=== PATIENT | male | born 1960 | race Caucasian/White ===

== ENCOUNTER 2017-04-08 18:23 | Emergency (ER) ==
[2017-04-08 18:24] VITALS: BMI 20.9
[2017-04-08 18:29] VITALS: TEMP 96.7
--- NOTE | 2017-04-08 18:35 | ED.PDOC ---
General Stated Complaint: syncope Time Seen by Physician: 18:24 (was found on the ground unresponsive) Mode of Arrival: Ambulance Information Source: Patient Exam Limitations: No limitations Referred to ED by: Other (ON OXYCDONE AND VALIUM AST OUT TAKE 1 TAB Q6HRS , HISTORY OF THROAT CANCER ) Nursing and Triage Documentation Reviewed and Agree: Yes <CAMILO BUSTOS - Last Filed: 04/08/17 18:32> <MARIA ELENA CARCAMO - Last Filed: 04/08/17 20:32> ED Provider: Dr. 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 Denies: Decreased responsiveness, Agitation, Dizziness, Weakness, Short of air, Cough, Wheezing, Hemoptysis, Chest pain, Palpitations, Edema, Nausea, Vomiting, Diarrhea, Abdominal pain, Back pain, Dysuria, Hematemesis, Melena, Decreased oral intake, Fever, Diaphoresis, Immunocompromised, Anticoagulation Therapy, Recent medication changes, Indwelling medical scientist, Prior MRSA, Prior VRE, Recent trauma, Remote trauma Recent Echo/LV Function: No Respiratory Distress: None JVD Present: No Tachypnea Present: No Stridor Present: No (ARRIVED FULLY ORIENTATED NO RESIDUAL DEFICIT) Abdominal Findings: Present: Normal findings Glascow Coma Scale (see protocol): 15 Meningeal Signs Positive: No Focal Weakness: Present: None Focal Sensory Loss: Present: None Gait: Normal Gag Reflex Present: No Babinski Sign: Negative Right, Negative Left Skin Findings: Present: Normal findings Joint Swelling Present: No In-Dwelling Device Present: No Differential Diagnosis: Cardiac Ischemia, CVA, Metabolic Abnormality, Other ( OVERDOSE WITH PAIN MEDS ) Quality Indicator For Non-Traumatic Chest Pain/Syncope: EKG Performed <CAMILO BUSTOS Last Filed: 04/08/17 18:32> Review of Systems - Review Of Systems Constitutional: Reports: No symptoms Eyes: Reports: No symptoms Ears, Nose, Mouth, Throat: Reports: No symptoms Respiratory: Reports: No symptoms Cardiac: Reports: Syncope GI: Reports: No symptoms : Reports: No symptoms Musculoskeletal: Reports: No symptoms Skin: Reports: No symptoms Neurological: Reports: No symptoms Endocrine: Reports: No symptoms Hematologic/Lymphatic: Reports: No symptoms All Other Systems: Reviewed and Negative <CAMILO BUSTOS Last Filed: 04/08/17 18:32> Past Medical History - Past Medical History Previously Healthy: Yes Endocrine: Reports: None Cardiovascular: Reports: None Respiratory: Reports: None Hematological: Reports: None Gastrointestinal: Reports: None Genitourinary: Reports: None Neuro/Psych: Reports: None Musculoskeletal: Reports: None Cancer: Reports: Other (THROAT CANCER ) - Surgical History General Surgical History: Reports: None - Family History Family History: Reports: None - Social History Smoking Status: Current some day smoker Hx Substance Use: No Alcohol Screening: Occasionally - Immunizations Tetanus Shot up to Date: Yes <CAMILO BUSTOS Filed: 04/08/17 18:32> Physical Exam - Physical Exam Appearance: Well-appearing, No pain distress, Well-nourished Eyes: LILIANA, EOMI, Conjunctiva clear ENT: Ears normal, Nose normal, Oropharynx normal Respiratory: Airway patent, Breath sounds clear, Breath sounds equal, Respirations nonlabored Cardiovascular: RRR, Pulses normal, No rub, No murmur GI/: Soft, Nontender, No masses, Bowel sounds normal, No Organomegaly Musculoskeletal: Normal strength, ROM intact, No edema, No calf tenderness Skin: Warm, Dry, Normal color Neurological: Sensation intact, Motor intact, Reflexes intact, Cranial nerves intact, Alert, Oriented Psychiatric: Affect appropriate, Mood appropriate <LUILILOCAMILO Last Filed: 04/08/17 18:32> Interpretation - Radiology Interpretation Radiology Interpretation By: Radiologist <CAMILO BUSTOS Last Filed: 04/08/17 18:32> Physician Notification - Case Discussed Physician Notified: ROTICH Time of Notification: 19:00 (LABS PENDING) <LUILILOCAMILO Last Filed: 04/08/17 18:32> Critical Care Note - Critical Care Note Total Time (mins): 0 <CAMILO BUSTOS - Last Filed: 04/08/17 18:32> <MARIA ELENA CARCAMO - Last Filed: 04/08/17 20:32> - Critical Care Note Comments: explained to the patient that he is at risk of dying if not keep in the hospital for observation due to narcotic overdose. patient insist on going home. he will sign out AMA. (MARIA ELENA CARCAMO) Course - Course Hematology/Chemistry: 04/08/17 18:56 04/08/17 18:56 <MARIA ELENA CARCAMO - Last Filed: 04/08/17 20:32> - Course Orders, Labs, Meds: Lab Review 04/08/17 04/08/17 04/08/17 18:56 18:56 19:08 WBC 10.70 H RBC 4.42 L Hgb 13.7 L Hct 40.5 L MCV 91.6 MCH 31.0 MCHC 33.8 RDW Coeff of [place] 14.1 Plt Count 276 Immature Gran % (Auto) 0.6 Neut % (Auto) 77.5 Lymph % (Auto) 13.2 Nicholas % (Auto) 7.5 Eos % (Auto) 0.7 Baso % (Auto) 0.5 Immature Gran # (Auto) 0.1 Neut # 8.3 H Lymph # 1.4 Nicholas # 0.8 Eos # 0.1 Baso # 0.1 Sodium 139 Potassium 4.7 Chloride 107 Carbon Dioxide 23 Anion Gap 13.7 BUN 20 H Creatinine 1.09 Estimated GFR (MDRD) 70.00 BUN/Creatinine Ratio 18.34 Glucose 135 H Calcium 9.0 Total Bilirubin 0.31 AST 76 H ALT 92 H Alkaline Phosphatase 58 Total Creatine Kinase 177 CK-MB (CK-2) 1.4 CK-MB (CK-2) % 0.58691 Troponin I < 0.0100 Total Protein 7.2 Albumin 3.7 Globulin 3.5 Albumin/Globulin Ratio 1.06 Urine Color Urine Clarity Urine pH Ur Specific [place] Urine Protein Urine Glucose (UA) Urine Ketones Urine Blood Urine Nitrite Urine Bilirubin Urine Urobilinogen Ur Leukocyte Esterase Ur Squamous Epith Cells Urine Sperm Urine Opiates Screen Positive Ur Oxycodone Screen Negative Urine Methadone Screen Negative Ur Propoxyphene Screen Negative Ur Barbiturates Screen Negative U Tricyclic Antidepress Negative Ur Phencyclidine Scrn Negative Ur Amphetamine Screen Positive U Methamphetamines Scrn Positive U Benzodiazepines Scrn Positive Urine Cocaine Screen Negative U Cannabinoids Screen Positive 04/08/17 19:08 WBC RBC Hgb Hct MCV MCH MCHC RDW Coeff of [place] Plt Count Immature Gran % (Auto) Neut % (Auto) Lymph % (Auto) Nicholas % (Auto) Eos % (Auto) Baso % (Auto) Immature Gran # (Auto) Neut # Lymph # Nicholas # Eos # Baso # Sodium Potassium Chloride Carbon Dioxide Anion Gap BUN Creatinine Estimated GFR (MDRD) BUN/Creatinine Ratio Glucose Calcium Total Bilirubin AST ALT Alkaline Phosphatase Total Creatine Kinase CK-MB (CK-2) CK-MB (CK-2) % Troponin I Total Protein Albumin Globulin Albumin/Globulin Ratio Urine Color Yellow Urine Clarity Clear Urine pH 5.5 Ur Specific [place] 1.020 Urine Protein 1+ Urine Glucose (UA) Negative Urine Ketones Negative Urine Blood Negative Urine Nitrite Negative Urine Bilirubin Negative Urine Urobilinogen 0.2 Ur Leukocyte Esterase Negative Ur Squamous Epith Cells 2-5 Urine Sperm 1+ Urine Opiates Screen Ur Oxycodone Screen Urine Methadone Screen Ur Propoxyphene Screen Ur Barbiturates Screen U Tricyclic Antidepress Ur Phencyclidine Scrn Ur Amphetamine Screen U Methamphetamines Scrn U Benzodiazepines Scrn Urine Cocaine Screen U Cannabinoids Screen Orders Category Date Time Status EKG-(ED ONLY) Stat CARDIO 04/08/17 18:30 Completed CBC W/ AUTO DIFF Stat LAB 04/08/17 18:56 Completed COMPREHENSIVE METABOLIC PANEL Stat LAB 04/08/17 18:56 Completed CREATINE KINASE Stat LAB 04/08/17 18:56 Completed TROPONIN I Stat LAB 04/08/17 18:56 Completed URINALYSIS C & S IF INDICATED Stat LAB 04/08/17 19:08 Completed URINE DRUG SCREEN (RAPID FOR ED) [DRUG SCREEN, URINE, LAB 04/08/17 19:08 Completed RAPID] Stat CT CERVICAL SPINE W/O CONTRAST Stat RADS 04/08/17 18:[address] HEAD W/O CONTRAST Stat RADS 04/08/17 18:31 Completed Vital Signs: Temp Pulse Resp BP Pulse Ox 04/08/17 19:40 97 04/08/17 19:24 126 H 15 152/106 H 04/08/17 18:24 96.7 F L 125 H 17 139/103 H 98 Departure <RAFATI,CAMILO - Last Filed: 04/08/17 18:32> - Departure Time of Disposition: 20:30 Pt referred to PMD for follow-up: Yes Disposition Discussed With: Patient, Family <MARIA ELENA CARCAMO - Last Filed: 04/08/17 20:32> - Departure Disposition: AMA Discharge Problem: Syncope and collapse Instructions: Syncope (ED) Condition: Stable Additional Instructions: Please call your Family Physician as soon as possible to schedule a follow-up appointment. Allergies/Adverse Reactions: Allergies gabapentin [From Neurontin] Adverse Reaction (Verified 04/08/17 18:40) tramadol HCl [From Ultram] Adverse Reaction (Verified 04/08/17 18:40) Home Medications: Ambulatory Orders Diazepam [Valium] 5 mg PO Q4-6H PRN 12/08/14 Oxycodone HCl 1 tab PO Q6HR 12/08/14
[2017-04-08 18:58] LABS: BASOPHILS # (AUTO) 0.1 K/uL (0-0.2); BASOPHILS % (AUTO) 0.5 % (0.0-3.0); EOSINOPHILS # (AUTO) 0.1 K/ul (0.0-0.7); EOSINOPHILS % (AUTO) 0.7 % (0.0-7.0); HEMATOCRIT 40.5 % (42.0-52.0); HEMOGLOBIN 13.7 g/dl (14.0-18.0); IMMATURE GRANULOCYTE % (AUTO) 0.6 % (0.0-5.0); LYMPHOCYTES # (AUTO) 1.4 K/uL (0.60-3.4); LYMPHOCYTES % (AUTO) 13.2 (10.0-50.0); MEAN CORPUSCULAR HGB CONC 33.8 (31.8-35.4); MEAN CORPUSCULAR VOLUME 91.6 fl (80.0-94.0); MONOCYTES # (AUTO) 0.8 K/uL (0.4-2.0); MONOCYTES % (AUTO) 7.5 (0-10); NEUTROPHILS # (AUTO) 8.3 K/ul (2.0-6.9); NEUTROPHILS % (AUTO) 77.5; PLATELET COUNT 276 10^3/uL (140-440); RED BLOOD COUNT 4.42 10^6/ul (4.70-6.10)
--- NOTE | 2017-04-08 19:11 | CT ---
Exam: CT of the brain without intravenous contrast. Comparison: CT soft tissue neck performed 12/08/2014. Reason for exam: Found on ground FINDINGS: No acute intracranial hemorrhage, mass effect, ventricular dilatation, or territorial infarction. Th e quadrigeminal and ambient cisterns are patent. There is no extraaxial fluid collection. Parenchym al changes are seen consistent with chronic microvascular disease. The calvarium is intact. There is minimal mucosal thickening in the left maxillary sinus. Otherwise the paranasal sinuses and mastoid air cells appear grossly unopacified. Impression: 1. No acute intracranial findings. 2. Parenchymal changes consistent with chronic microvascular disease. 3. Minimal mucosal thickening in the left maxillary sinus. Report faxed at 1907 hours on 04/08/2017.
--- NOTE | 2017-04-08 19:12 | CT ---
CT cervical spine without contrast HISTORY: Fall with injury and pain TECHNIQUE: CT of the cervical spine with multiplanar reformations. FINDINGS: Reformatted images demonstrate normal alignment with preservation of vertebral body height . Prior fusion of 02/1967. The hardware is intact. No fracture seen on the axial or reformatted shannan ges. No acute surrounding soft tissue abnormalitites. Lung apices are clear with emphysematous change . IMPRESSION: No acute findings in the cervical spine.
[2017-04-08 19:15] LABS: BILIRUBIN,URINE Negative (NEGATIVE); KETONES,URINE Negative (NEGATIVE); LEUKOCYTE ESTERASE ,URINE Negative (NEGATIVE); NITRITE,URINE Negative (NEGATIVE); PH,URINE 5.5 (5-9); PROTEIN,URINE 1+ (NEGATIVE); URINE, BLOOD Negative (NEGATIVE)
[2017-04-08 19:22] LABS: ADD URINE MICROSCOPIC YES
[2017-04-08 19:25] VITALS: BP 152/106
[2017-04-08 19:25] LABS: SPERM,URINE 1+ (NOT PRESENT)
[2017-04-08 19:33] LABS: ALANINE AMINOTRANSFERASE 92 U/L (12-78); ALBUMIN 3.7 g/dL (3.4-5.0); ALBUMIN/GLOBULIN RATIO 1.06; ALKALINE PHOSPHATASE 58 U/L (50-136); ANION GAP 13.7; ASPARTATE AMINO TRANSFERASE 76 U/L (15-37); BILIRUBIN,TOTAL 0.31 mg/dL (0.00-1.20); BLOOD UREA NITROGEN 20 mg/dL (7-18); BUN/CREATININE RATIO 18.34; CARBON DIOXIDE 23 mmol/L (21-32); CHLORIDE 107 mmol/L (98-107); CREATINE KINASE 177 U/L; CREATININE 1.09 mg/dL (0.60-1.10); GLUCOSE 135 mg/dL (70-100); POTASSIUM 4.7 mmol/L (3.5-5.1); SODIUM 139 mmol/L (136-145); TOTAL PROTEIN 7.2 g/dL (6.4-8.2)
[2017-04-08 19:40] LABS: COCAIN SCREEN,URINE NEGATIVE (NEGATIVE)
[2017-04-08 19:45] LABS: CREATINE KINASE MB 1.4 ng/ml (0.0-3.6)
== END 2017-04-08 20:25 | disposition left against medical advice (07) ==
LOC: ED 18:23
DX: R55 Syncope and collapse (principal); R41.0 Disorientation, unspecified; R51 Headache; T40.601A Poisoning by unspecified narcotics, accidental (unintentional), initial encounter; R23.0 Cyanosis; R11.0 Nausea; R00.0 Tachycardia, unspecified; R06.9 Unspecified abnormalities of breathing; R61 Generalized hyperhidrosis; F17.210 Nicotine dependence, cigarettes, uncomplicated; Z85.818 Personal history of malignant neoplasm of other sites of lip, oral cavity, and pharynx
CPT/HCPCS: 36415; 80053; 80306; 81001; 82550; 82553; 84484; 85025; 93005; 93010; 96360; 96361; 99284

== ENCOUNTER 2017-12-23 09:14 | Emergency (ER) | payer OTHER ==
[2017-12-23 09:18] VITALS: BP 161/119; TEMP 96.9; BMI 20.7
--- NOTE | 2017-12-23 10:35 | ED.PDOC ---
General ED Provider: Dr. INOCENCIA RIVERA Chief Complaint: Neck Pain Non-Injury Stated Complaint: CC: Neck Pain. HPI:PATIENT REPORTS THAT HE FELL 2 WEEKS AGO ON 12/13/17 AND STRUCK HIS HEAD AGAINST A CONCRETE WALL RESULTING IN CAUSING HIS NECK TO MOVE FORCEFULLY AGAINST HIS CHEST. PATIENT REPORTS THAT HE FEELS LIKE THE PAIN IS NOW "MESSING WITH HIS EYE SIGHT". HX OF CHRONIC NECK PAIN AND SEES PAIN MANAGEMENT FOR TREATMENT. DENIES LOC, NAUSEA OR VOMITING. HX OF THROAT CA PREVIOUSLY TREATED. Time Seen by Physician: 09:30 Mode of Arrival: Walk-In Information Source: Patient Primary Care Provider: RAFFI SCHOFIELD Nursing and Triage Documentation Reviewed and Agree: Yes Reviewed sepsis parameters & appropriate labs ordered?: Yes System Inflammatory Response Syndrome: Not Applicable Sepsis Protocol: For patient's 13 years and over: Temp is 96.8 and below OR 101 and greater Pulse >90 BPM Resp >20/minute Acutely Altered Mental Status Are patient's symptoms suggestive of a new infection, such as: -Pneumonia -Skin, Soft Tissue -Endocarditis -UTI -Bone, Joint Infection -Implantable Device -Acute Abdominal Infection -Wound Infection -Meningitis -Blood Stream Catheter Infection -Unknown Musculoskeletal Complaint Exam - Neck Pain Complaint/Exam Mechanism of Injury: Reports: Trauma (Hitting back of head causing jarring of neck) Symptoms Are: Still present Timing: Intermittent Episodes Lasting: Minutes Initial Severity: Moderate Current Severity: Mild Location: Reports: Diffuse Character: Reports: Sharp, Dull, Aching Aggravating: Reports: Position, Movement Alleviating: Reports: Position, OTC meds, Ice Associated Signs and Symptoms: Reports: Headache. Denies: Swelling, Redness, Bruising, Fever, Nuchal rigidity, Weakness, Paresthesia Related History: Reports: Similar episode Meningitis Risk Factors: Reports: None Cervical Spine Injury Risk Factors: Denies: Post-Midline CS tender, Evidence of intoxication, Altered LOC, Focal neuro deficit, Distracting injuries Related Surgical History: Reports: Cervical Fusion Carotid Bruit Present: No Pain on Passive Flexion: No Positive Kernig's Sign: No ROM Limited In: Present: Flexion Tenderness: Present: Midline, Paraspinal Radiates to: Absent: Right arm, Left arm Focal Weakness: Present: None Focal Sensory Loss: Reports: None Nexus Low Risk Criteria: No post-midline CS tender, No evidence of intoxicat., No Altered LOC, No focal neuro deficit, No distracting injuries Differential Diagnoses: Strain, Other Review of Systems - Review Of Systems Constitutional: Reports: No symptoms Eyes: Reports: No symptoms Ears, Nose, Mouth, Throat: Reports: No symptoms, Throat pain (vocal deficit due to hx Ca) Respiratory: Reports: No symptoms Cardiac: Reports: No symptoms GI: Reports: No symptoms : Reports: No symptoms Musculoskeletal: Reports: No symptoms Skin: Reports: No symptoms Neurological: Reports: No symptoms Endocrine: Reports: No symptoms Hematologic/Lymphatic: Reports: No symptoms All Other Systems: Reviewed and Negative Past Medical History - Past Medical History Previously Healthy: Yes Endocrine: Reports: None Cardiovascular: Reports: None Respiratory: Reports: None Hematological: Reports: None Gastrointestinal: Reports: None Genitourinary: Reports: None Neuro/Psych: Reports: None Musculoskeletal: Reports: None Cancer: Reports: Other (THROAT CANCER ) - Surgical History General Surgical History: Reports: None, Unknown (Cervical spine) - Family History Family History: Reports: None - Social History Smoking Status: Current some day smoker Hx Substance Use: No Alcohol Screening: Occasionally Physical Exam - Physical Exam Appearance: Well-appearing, No pain distress, Well-nourished, Thin Ill-appearing: None Pain Distress: None Eyes: LILIANA, EOMI, Conjunctiva clear ENT: Ears normal, Nose normal, Oropharynx normal Respiratory: Airway patent, Breath sounds clear, Breath sounds equal, Respirations nonlabored Cardiovascular: RRR, Pulses normal, No rub, No murmur GI/: Soft, Nontender, No masses, Bowel sounds normal, No Organomegaly Musculoskeletal: Normal strength, ROM intact, No edema, No calf tenderness, Limited ROM (Cervical spine restricted due to pain and hx prev surgery; no meningeal signs) Skin: Warm, Dry, Normal color Neurological: Sensation intact, Motor intact, Reflexes intact, Cranial nerves intact, Alert, Oriented Psychiatric: Affect appropriate, Mood appropriate Interpretation - Radiology Interpretation Radiology Interpretation By: Radiologist Radiology Results: No acute changes (Brain and C spine) Exam Interpreted: CT Scan Re-Evaluation - Re-Evaluation Time of Re-Evaluation: 12:15 Status: Improved Vital Signs Stable: Yes Appearance: NAD Lungs: Clear Skin: Warm and Dry Neuro: Alert and Oriented X3 CV: RRR Critical Care Note - Critical Care Note Total Time (mins): 0 Course - Course Orders, Labs, Meds: Orders Category Date Time Status CT CERVICAL SPINE W/O CONTRAST Stat RADS 12/23/17 10:[address] HEAD W/O CONTRAST Stat RADS 12/23/17 10:37 Completed Vital Signs: Temp Pulse Resp BP Pulse Ox 12/23/17 09:15 96.9 F L 74 16 161/119 H 98 Departure - Departure Time of Disposition: 12:30 Disposition: HOME SELF-CARE Discharge Problem: Neck pain, Head pain cephalgia Instructions: Cervical Strain (DC), Acute Headache (ED) Condition: Good Pt referred to PMD for follow-up: Yes (PCP) IPMP verified?: No Additional Instructions: Apply ice alternating with warm moist heat to area of involvement Take analgesics as prescribed previously Follow up PCP in next week Allergies/Adverse Reactions: Allergies gabapentin [From Neurontin] Adverse Reaction (Verified 12/23/17 09:18) tramadol HCl [From Ultram] Adverse Reaction (Verified 12/23/17 09:18) Home Medications: Ambulatory Orders Lisinopril [Zestril] 10 mg PO DAILY 12/23/17 Disposition Discussed With: Patient, Family
--- NOTE | 2017-12-23 11:52 | CT ---
EXAM: CT scan brain without contrast HISTORY: Fall COMPARISON: CT scan brain 04/08/2017 FINDINGS: Contiguous axial images obtained from the skull base to the convexities without contrast u tilizing 5-mm collimation. Sagittal and coronal reconstructions were imaged and reviewed.. The ventr icles and CSF spaces are prominent compatible with age appropriate. There is mild periventricular hy podensity noted compatible with chronic microvascular disease.. Visualized paranasal sinuses and mas toid air cells are clear. Atherosclerotic changes are seen involving cavernous internal carotid chris peyton. The calvarium is intact. IMPRESSION: No acute intracranial findings
--- NOTE | 2017-12-23 12:00 | CT ---
EXAM: CT cervical spine without contrast HISTORY: Pain in head and neck COMPARISON: 02/05/2017 TECHNIQUE: CT cervical spine performed without intravenous contrast. Coronal and sagittal reformatt ed images obtained. FINDINGS: Patient status post anterior spinal fusion C6-C7 with interbody spacer/graft. Hardware ap pears intact. Vertebral bodies normal height. No fracture. No subluxation. Multilevel interverteb ral disc space narrowing, greatest at C3-C4. Multilevel facet and uncovertebral hypertrophy. Degene rative changes cause mild to moderate central canal and neural foraminal narrowing that is greatest a t C3-C4. Prevertebral soft tissues appear normal. Carotid atherosclerotic vascular calcifications. E mphysema lung apices. IMPRESSION: 1. No fracture or subluxation. 2. Posterior spinal fusion C6-C7. Hardware appears intact. Chronic degenerative changes. 3. Emphysema. 4. Carotid calcifications.
== END 2017-12-23 12:40 | disposition home or self-care (01) ==
LOC: ED 09:14
DX: M54.2 Cervicalgia (principal); R51 Headache; F17.210 Nicotine dependence, cigarettes, uncomplicated; W19.XXXA Unspecified fall, initial encounter
CPT/HCPCS: 99283

== ENCOUNTER 2024-04-04 19:49 | Observation (INO) ==
[2024-04-04] MEDS: LACTATED RINGERS 1,000 ML IV ONE (20:08)
[2024-04-04 20:18] LABS: BASOPHILS # (AUTO) 0.1 K/uL (0-0.2); BASOPHILS % (AUTO) 0.6 % (0.0-3.0); EOSINOPHILS # (AUTO) 0.3 K/ul (0.0-0.7); EOSINOPHILS % (AUTO) 2.3 % (0.0-7.0); HEMATOCRIT 52.1 % (42.0-52.0); HEMOGLOBIN 17.5 g/dl (14.0-18.0); IMMATURE GRANULOCYTE # (AUTO) 0.1 (0.0-1.0); IMMATURE GRANULOCYTE % (AUTO) 0.7 % (0.0-5.0); LYMPHOCYTES # (AUTO) 2.7 K/uL (0.60-3.4); LYMPHOCYTES % (AUTO) 25.4 (10.0-50.0); MEAN CORPUSCULAR HEMOGLOBIN 31.4 pg (27.0-31.0); MEAN CORPUSCULAR HGB CONC 33.6 (31.8-35.4); MEAN CORPUSCULAR VOLUME 93.5 fl (80.0-94.0); MONOCYTES # (AUTO) 1.2 K/uL (0.4-2.0); MONOCYTES % (AUTO) 11.1 (0-10); NEUTROPHILS # (AUTO) 6.4 K/ul (2.0-6.9); NEUTROPHILS % (AUTO) 59.9 % (42.2-75.2); PLATELET COUNT 282 10^3/uL (140-440); RDW COEFFICIENT OF VARIATION 14.3 % (11.6-14.8); RED BLOOD COUNT 5.57 10^6/ul (4.70-6.10); WHITE BLOOD COUNT 10.64 K/ul (4.2-10.2)
--- NOTE | 2024-04-04 20:19 | ED.PDOC ---
General ED Provider: Dr. KRISTIAN ARMENDARIZ MD Chief Complaint: Shortness of Air Stated Complaint: 63 yo WM complains of don't feel good and hurting all over for 4-5 days. Some cough but can't catch his breath. Also some vague chest pain and bad headaches for 4-5 days. Difficulty getting up and around today but drove himself in. Hx of HTN, back surgery. Smokes 1 PPD, weekend alcohol drinker about 12 pack daily. Use daily THC and occasional meth. On arrival RN reported his BP 58/44. Time Seen by Provider: 04/04/24 19:55 Mode of Arrival: Walk-In Information Source: Patient Exam Limitations: Clinical condition Primary Care Provider: EDIN BOSTON Referred to ED by: Other (self) Nursing and Triage Documentation Reviewed and Agree: Yes What is Opioid Naive?: *Opioid Naive implies the patient is not already taking opioids or not chronically receiving opioids on a daily basis. *PRN dosing is not "usually" associated with tolerance. *Patients are at higher risk of over-sedation and aspiration. What is Opioid Tolerant?: *Opioid Tolerance implies less than the expected response to an opioid. *Acquired tolerance is defined by the patient taking 60mg of oral morphine daily (or equianalgesic dose of another opioid) for 1 week or more. *Often associated with chronic pain. *May take more than usual dose to achieve desired pain control. Review of Systems Review Of Systems Constitutional: Reports Malaise and Weakness Eyes: Reports No symptoms Ears, Nose, Mouth, Throat: Denies Nose discharge or Throat pain Respiratory: Reports Cough and Shortness of Breath Cardiac: Reports Chest pain GI: Reports Diarrhea (Diarrhea for 2 days); Denies Vomiting Musculoskeletal: Reports Back pain Skin: Reports No symptoms Neurological: Reports Headache Endocrine: Denies Excessive sweating [facility] Social History Smoking and tobacco status: Current every day smoker Physical Exam Physical Exam Appearance: Reports Well-nourished Ill-appearing: Mild Pain Distress: Mild Eyes: Reports LILIANA and EOMI ENT: Reports Nose normal and Oropharynx normal Neck: Supple Respiratory: Reports Breath sounds equal, Respirations nonlabored and Rhonchi; Denies Wheezes or Retractions Cardiovascular: Reports RRR, Pulses normal, No rub and No murmur GI/: Reports Nontender, No masses, Bowel sounds normal and No Organomegaly Musculoskeletal: Reports Normal strength, ROM intact and No edema Skin: Reports Warm, Dry and Normal color Neurological: Reports Sensation intact, Motor intact and Reflexes intact Psychiatric: Reports Affect appropriate and Mood appropriate Interpretation EKG Interpretation EKG Interpretation By: ED Physician Time of EKG #1: 20:15 Rate: Normal Rhythm: Sinus Ectopy: None [place]: [place] ST Segment: Normal Interpretation: NSR, normal axis, abnormal R wave progression, borderline EKG Course Course 04/04/24 20:05 04/04/24 20:05 Orders, Labs, Meds: Lab Review 04/04/24 04/04/24 04/04/24 20:05 20:06 21:06 WBC 10.64 H RBC 5.57 Hgb 17.5 Hct 52.1 H MCV 93.5 MCH 31.4 H MCHC 33.6 RDW Coeff of [place] 14.3 Plt Count 282 Immature Gran % (Auto) 0.7 Neut % (Auto) 59.9 Lymph % (Auto) 25.4 Bartholomew % (Auto) 11.1 H Eos % (Auto) 2.3 Baso % (Auto) 0.6 Neut # (Auto) 6.4 Lymph # (Auto) 2.7 Bartholomew # (Auto) 1.2 Eos # (Auto) 0.3 Baso # (Auto) 0.1 Immature Gran # (Auto) 0.1 Sodium 135.1 Potassium 3.82 Chloride 99.8 Carbon Dioxide 21.4 L Anion Gap 17.72 BUN 19.8 Creatinine 1.81 H Estimated GFR (MDRD) 38.00 BUN/Creatinine Ratio 10.93 Glucose 106.8 H Lactic Acid 2.82 H Calcium 9.65 Magnesium 2.23 Total Bilirubin 0.44 AST 37.1 ALT 18.0 Alkaline Phosphatase 80.4 Total Creatine Kinase CK-MB (CK-2) CK-MB (CK-2) % Troponin I < 0.012 NT-Pro-B Natriuret Pep 702 H Total Protein 7.90 Albumin 4.83 Globulin 3.07 Albumin/Globulin Ratio 1.57 Procalcitonin < 0.05 D-Dimer 970.92 H Urine Opiates Screen Negative Ur Oxycodone Screen Negative Urine Methadone Screen Negative Ur Barbiturates Screen Negative U Tricyclic Antidepress Negative Ur Phencyclidine Scrn Negative Ur Amphetamine Screen Positive H U Methamphetamines Scrn Positive H U Benzodiazepines Scrn Positive H Urine Cocaine Screen Negative U Cannabinoids Screen Positive H 04/04/24 22:45 WBC RBC Hgb Hct MCV MCH MCHC RDW Coeff of [place] Plt Count Immature Gran % (Auto) Neut % (Auto) Lymph % (Auto) Bartholomew % (Auto) Eos % (Auto) Baso % (Auto) Neut # (Auto) Lymph # (Auto) Bartholomew # (Auto) Eos # (Auto) Baso # (Auto) Immature Gran # (Auto) Sodium Potassium Chloride Carbon Dioxide Anion Gap BUN Creatinine Estimated GFR (MDRD) BUN/Creatinine Ratio Glucose Lactic Acid Calcium Magnesium Total Bilirubin AST ALT Alkaline Phosphatase Total Creatine Kinase 172.8 H CK-MB (CK-2) Pending CK-MB (CK-2) % Pending Troponin I NT-Pro-B Natriuret Pep Total Protein Albumin Globulin Albumin/Globulin Ratio Procalcitonin D-Dimer Urine Opiates Screen Ur Oxycodone Screen Urine Methadone Screen Ur Barbiturates Screen U Tricyclic Antidepress Ur Phencyclidine Scrn Ur Amphetamine Screen U Methamphetamines Scrn U Benzodiazepines Scrn Urine Cocaine Screen U Cannabinoids Screen Orders Category Date Time Status ADMIT OBSERVATION [PLACE PATIENT OBSERVATION] .TO ADMISSION 04/04/24 22:49 Ordered MEDSURG (MONITORED BED) OBSERVATION [PLACE PATIENT OBSERVATION] .TO MEDSURG ADMISSION 04/04/24 22:55 Active (MONITORED BED) ECHOCARDIOGRAM 2D-M MODE Routine CARDIO 04/04/24 22:54 Ordered EKG-(ED ONLY) Stat CARDIO 04/04/24 20:12 Completed NEBULIZER TREATMENT Routine CARDIO 04/04/24 22:52 Ordered ACTIVITY .Up With Assistance CARE 04/04/24 22:45 Active INTAKE & OUTPUT Q8HR CARE 04/04/24 22:45 Active NPO REMINDER: IMAGING ONCE CARE 04/04/24 21:07 Active NPO REMINDER: IMAGING ONCE CARE 04/04/24 22:55 Ordered TELEMETRY MONITORING TELE CARE 04/04/24 22:49 Ordered TELEMETRY MONITORING TELE CARE 04/04/24 22:55 Active VITAL SIGNS Q4HR CARE 04/04/24 22:45 Active CARDIAC DIET DIETARY 04/05/24 Breakfast Ordered BLOOD CULTURE (ED ONLY) Stat LAB 04/04/24 20:24 Received CBC W/ AUTO DIFF DAILY@0600 LAB 04/05/24 06:00 Ordered CBC W/ AUTO DIFF DAILY@0600 LAB 04/06/24 06:00 Ordered CBC W/ AUTO DIFF Stat LAB 04/04/24 20:05 Completed CBC W/ AUTO DIFF Stat LAB 04/04/24 22:54 Ordered CMP [COMPREHENSIVE METABOLIC PANEL] Stat LAB 04/04/24 20:05 Completed CMP [COMPREHENSIVE METABOLIC PANEL] Stat LAB 04/04/24 22:54 Ordered COMPREHENSIVE METABOLIC PANEL DAILY@0600 LAB 04/05/24 06:00 Ordered COMPREHENSIVE METABOLIC PANEL DAILY@0600 LAB 04/06/24 06:00 Ordered COVID [SARS COV-2 RNA RAPID AMANDA] Stat LAB 04/04/24 22:55 Ordered CPK [CREATINE KINASE] Stat LAB 04/04/24 22:45 Results D-DIMER Stat LAB 04/04/24 20:05 Completed LACTIC ACID Stat LAB 04/04/24 20:06 Completed MAGNESIUM DAILY@0600 LAB 04/05/24 06:00 Ordered MAGNESIUM DAILY@0600 LAB 04/06/24 06:00 Ordered MAGNESIUM Stat LAB 04/04/24 20:05 Completed PROBNP ED [NT-PROBNP(ED)] Stat LAB 04/04/24 20:05 Completed PROCALCITONIN Stat LAB 04/04/24 20:05 Completed TROPONIN I DAILY@0600 LAB 04/05/24 06:00 Ordered TROPONIN I DAILY@0600 LAB 04/06/24 06:00 Ordered TROPONIN I Stat LAB 04/04/24 20:05 Completed TROPONIN I Stat LAB 04/04/24 22:54 Ordered URINE DRUG SCREEN (RAPID FOR ED) [DRUG SCREEN, URINE, LAB 04/04/24 21:06 Completed RAPID] Stat 1 gm/50 ml IV Daily Norris Meds 04/04/24 23:00 Ordered Ceftriaxone/D5w 1 gm Premix [Rocephin 1 gm/50 ml D5w] 1 gm in 50 ml IV DAILY Acetaminophen [Tylenol] Meds 04/04/24 22:45 Active 650 mg PO Q4H PRN Albuterol Sulfate 0.083% Neb [Albuterol 0.083% Neb] Meds 04/05/24 06:00 Ordered 2.5 mg NEB RTQID Albuterol Sulfate [Ventolin Hfa] Meds 04/04/24 22:47 Active 2 puff IH QID PRN Methylprednisolone Sod Succ/Pf [Solu-Medrol 125 mg] Meds 04/04/24 23:00 Ordered 80 mg IVP BID Ondansetron HCl/Pf [Zofran 4 mg/2 ml] Meds 04/04/24 22:45 Active 4 mg IVP Q6H PRN Pantoprazole Sodium [Protonix] Meds 04/05/24 09:00 Ordered 40 mg IVP DAILY Pantoprazole Sodium [Protonix] Meds 04/05/24 09:00 Active 40 mg PO DAILY RINGERS LACTATED SOLUTION @ 125 MLS/HR(1,000ml) Meds 04/04/24 22:49 Ordered Ringers Lactated Solution [Lactated Ringers] 1,000 ml IV 125 mls/hr Ringers Lactated Solution [Lactated Ringers] 1,000 ml Meds 04/04/24 23:00 Active IV 150 mls/hr Ringers Lactated Solution [Lactated Ringers] 1,000 ml Meds 04/04/24 20:08 Discontinued IV BOLUS Sodium Chloride 0.9% [Sodium Chloride] 1,000 ml Meds 04/04/24 20:[address] HEAD W/O CONTRAST Stat RADS 04/04/24 21:07 Completed CTA CHEST PE PROTOCOL Stat RADS 04/04/24 21:07 Completed CXR [CHEST, 1V AP ONLY] Stat RADS 04/04/24 20:06 Completed US RENAL [U/S KIDNEYS] Stat RADS 04/04/24 22:54 Ordered Medications Generic Name Dose Route Start Last Admin Trade Name Freq PRN Reason Stop Dose Admin Acetaminophen 650 mg 04/04/24 22:45 Acetaminophen 325 Mg Tablet PO Q4H PRN Mild Pain Albuterol Sulfate 2 puff 04/04/24 22:47 Albuterol Sulfate 8 Gm Inhaler IH QID PRN Wheezing Lactated Ringer's 1,000 mls @ 150 mls/hr 04/04/24 23:00 Lactated Ringers IV .Q6H40M NORRSI Ondansetron HCl 4 mg 04/04/24 22:45 Ondansetron Hcl/Pf 4 Mg/2 Ml Sdv IVP Q6H PRN Nausea / Vomiting Pantoprazole Sodium 40 mg 04/05/24 09:00 Pantoprazole Sodium 40 Mg Tablet. PO DAILY NORRIS Discontinued Medications Generic Name Dose Route Start Last Admin Trade Name Freq PRN Reason Stop Dose Admin Lactated Ringer's 1,000 mls @ 1,000 mls/hr 04/04/24 20:08 04/04/24 20:50 Lactated Ringers IV 04/04/24 21:07 Infused BOLUS ONE Infusion Sodium Chloride 1,000 mls @ 1,000 mls/hr 04/04/24 20:51 04/04/24 21:50 Sodium Chloride IV 04/04/24 21:50 Infused BOLUS ONE Infusion Vital Signs: Temp Pulse Resp BP Pulse Ox 04/04/24 21:38 79 16 92/65 99 04/04/24 19:55 97.6 F 106 H 24 H 58/44 L 97 Discharge Plan Discharge Patient Disposition: PLACED OBSERVATION Did you review [place] [employer] for ALL controlled substances?: Not Applicable ED Provider: KRISTIAN ARMENDARIZ Condition: Fair Physician Progress Note: BP got up to 95 systolic but after 2 liters of IV fluid still mildly hypotensive, though, he doesnt' appear toxic. CTA neg for PE but severe emphysema. CT head negative. Discussed with hospitalist and will admit OBS for Acute Kidney Injury and hypotension Previous labs showed BUN/Cr of 16/1.0 in 2021.
[2024-04-04 20:35] LABS: ALBUMIN 4.83 g/dL (3.5-5.0); ALKALINE PHOSPHATASE 80.4 U/L (56-119); ASPARTATE AMINO TRANSFERASE 37.1 U/L (17-59); BILIRUBIN,TOTAL 0.44 mg/dL (0.2-1.3); BLOOD UREA NITROGEN 19.8 mg/dL (9-20); CALCIUM 9.65 mg/dL (8.4-10.2); CARBON DIOXIDE 21.4 mmol/L (22-30.0); CHLORIDE 99.8 mmol/L (98-107); CREATININE 1.81 mg/dL (0.60-1.10); GLUCOSE 106.8 mg/dL (74-106); MAGNESIUM 2.23 mg/dL (1.6-2.3); POTASSIUM 3.82 mmol/L (3.5-5.1); SODIUM 135.1 mmol/L (134.5-145)
[2024-04-04 20:46] LABS: TROPONIN I < 0.012 ng/ml (0.0000-0.120)
[2024-04-04] MEDS: SODIUM CHLORIDE 1,000 ML IV ONE (20:50)
[2024-04-04 21:28] LABS: OPIATE SCREEN,URINE NEGATIVE (NEGATIVE)
[2024-04-04 21:29] LABS: AMPHETAMINE SCREEN,URINE POSITIVE (NEGATIVE); BARBITURATE SCREEN,URINE NEGATIVE (NEGATIVE); BENZODIAZEPINES SCREEN,URINE POSITIVE (NEGATIVE); CANNABINOID SCREEN,URINE POSITIVE (NEGATIVE); COCAIN SCREEN,URINE NEGATIVE (NEGATIVE); METHADONE URINE SCREEN NEGATIVE (NEGATIVE); METHAMPHETAMINES SCREEN,URINE POSITIVE (NEGATIVE); OXYCODONE URINE SCREEN NEGATIVE (NEGATIVE); PHENCYCLIDINE SCREEN,URINE NEGATIVE (NEGATIVE); TRICYCLIC ANTIDEPRESSANTS URIN NEGATIVE (NEGATIVE)
--- NOTE | 2024-04-04 21:41 | DI ---
EXAM: CHEST RADIOGRAPH TECHNIQUE: Single frontal chest radiograph. HISTORY: Dyspnea. COMPARISON: 07/20/2023 FINDINGS: Lungs show no consolidation, pleural effusion or pneumothorax. The left mid lung does show a small cystic type change which is not appreciated previously. Cardiomediastinal silhouette and pulmonary v essels are within normal limits. Upper abdomen is unremarkable. No acute bony abnormality. Postsur gical change lower cervical spine without sequelae. IMPRESSION: 1. No acute cardiopulmonary disease. 2. Cystic type change in the left midlung which is not appreciated previously. Nonspecific at this time. Suggest follow-up non-emergent CT scan of chest for further evaluation.
--- NOTE | 2024-04-04 22:32 | CT ---
EXAM: CT BRAIN WITHOUT CONTRAST HISTORY: Headache TECHNIQUE: CT of the brain without intravenous contrast. FINDINGS: There is no acute hemorrhage midline shift or mass effect. No hydrocephalus or abnormal e xtra-axial fluid collection. No significant parenchymal attenuation abnormality. The bony cranium a ppears normal. The visualized paranasal sinuses are clear. Soft tissues without significant abnormal ity. IMPRESSION: 1. CT of the brain within normal limits. All CT scans are performed using dose optimization techniques as appropriate to the performed exam an d include at least one of the following: Automated exposure control, adjustment of the mA and/or kV according t o size, and the use of iterative reconstruction technique.
--- NOTE | 2024-04-04 22:37 | CT ---
EXAM: CT ANGIOGRAPHY OF THE CHEST History: Dyspnea Technique: [address] of the chest utilizing CT angiography protocol. Multiplanar and m aximum intensity projection reformations were performed. FINDINGS: Technically adequate for evaluation of pulmonary arteries. There are no pulmonary artery filling defects. The Lung windows show severe emphysema. Ascending thoracic aorta 4.1 cm. No aorti c dissection. No mediastinal lymphadenopathy. No acute chest wall abnormality. No abnormalities of the upper abdomen. Impression: 1. No evident of pulmonary artery thrombus 2. Severe emphysema 3. No acute cardiopulmonary disease 4. Ascending thoracic aorta 4.[address] scans are performed using dose optimization techniques as appropriate to the performed exam an d include at least one of the following: Automated exposure control, adjustment of the mA and/or kV according t o size, and the use of iterative reconstruction technique.
[2024-04-04] MEDS ORDERED: TYLENOL PO PRN (22:45)
[2024-04-04] MEDS ORDERED: ZOFRAN 4 MG/2 ML IVP PRN (22:45)
[2024-04-04] MEDS ORDERED: VENTOLIN HFA IH PRN (22:47)
[2024-04-04] MEDS ORDERED: LACTATED RINGERS 1,000 ML IV ONE (22:49)
[2024-04-04 22:56] LABS: CREATINE KINASE 172.8 U/L (55-170)
[2024-04-04 23:12] LABS: CREATINE KINASE MB 3.3 ng/ml (0.0-2.38)
[2024-04-04 23:15] LABS: BASOPHILS # (AUTO) 0.1 K/uL (0-0.2); BASOPHILS % (AUTO) 0.6 % (0.0-3.0); EOSINOPHILS # (AUTO) 0.3 K/ul (0.0-0.7); EOSINOPHILS % (AUTO) 2.8 % (0.0-7.0); HEMATOCRIT 48.6 % (42.0-52.0); HEMOGLOBIN 15.8 g/dl (14.0-18.0); IMMATURE GRANULOCYTE # (AUTO) 0.1 (0.0-1.0); IMMATURE GRANULOCYTE % (AUTO) 0.5 % (0.0-5.0); LYMPHOCYTES # (AUTO) 2.4 K/uL (0.60-3.4); LYMPHOCYTES % (AUTO) 24.9 (10.0-50.0); MEAN CORPUSCULAR HEMOGLOBIN 31.2 pg (27.0-31.0); MEAN CORPUSCULAR HGB CONC 32.5 (31.8-35.4); MEAN CORPUSCULAR VOLUME 95.9 fl (80.0-94.0); MONOCYTES # (AUTO) 1.1 K/uL (0.4-2.0); MONOCYTES % (AUTO) 10.9 (0-10); NEUTROPHILS # (AUTO) 5.9 K/ul (2.0-6.9); NEUTROPHILS % (AUTO) 60.3 % (42.2-75.2); PLATELET COUNT 238 10^3/uL (140-440); RDW COEFFICIENT OF VARIATION 14.4 % (11.6-14.8); RED BLOOD COUNT 5.07 10^6/ul (4.70-6.10); WHITE BLOOD COUNT 9.81 K/ul (4.2-10.2)
[2024-04-04 23:25] LABS: ALANINE AMINOTRANSFERASE 14.7 U/L (0-50); ALBUMIN 3.94 g/dL (3.5-5.0); ALKALINE PHOSPHATASE 70.5 U/L (56-119); ASPARTATE AMINO TRANSFERASE 25.1 U/L (17-59); BILIRUBIN,TOTAL 0.51 mg/dL (0.2-1.3); BLOOD UREA NITROGEN 17.8 mg/dL (9-20); CALCIUM 8.68 mg/dL (8.4-10.2); CARBON DIOXIDE 20.5 mmol/L (22-30.0); CHLORIDE 103.6 mmol/L (98-107); CREATININE 1.43 mg/dL (0.60-1.10); GLUCOSE 78.2 mg/dL (74-106); POTASSIUM 4.43 mmol/L (3.5-5.1); SODIUM 134.1 mmol/L (134.5-145); TOTAL PROTEIN 6.53 g/dL (6.3-8.2)
[2024-04-04 23:34] LABS: SARS COV-2 RNA RAPID NAAT NEGATIVE (NEGATIVE)
[2024-04-04 23:37] LABS: TROPONIN I < 0.012 ng/ml (0.0000-0.120)
[2024-04-04] MEDS: SOLU-MEDROL 40 MG IVP SCH (23:46)
[2024-04-04] MEDS: ROCEPHIN 1 GM/50 ML D5W 1 GM/50 ML BAG IV SCH (23:46)
[2024-04-05] MEDS: LACTATED RINGERS 1,000 ML IV SCH (00:48)
[2024-04-05 01:43] VITALS: BMI 19.6
[2024-04-05 05:21] LABS: BASOPHILS % (AUTO) 0.2 % (0.0-3.0); EOSINOPHILS % (AUTO) 0.3 % (0.0-7.0); HEMATOCRIT 47.1 % (42.0-52.0); HEMOGLOBIN 15.7 g/dl (14.0-18.0); IMMATURE GRANULOCYTE % (AUTO) 0.3 % (0.0-5.0); LYMPHOCYTES # (AUTO) 0.4 K/uL (0.60-3.4); LYMPHOCYTES % (AUTO) 4.3 (10.0-50.0); MEAN CORPUSCULAR HEMOGLOBIN 31.1 pg (27.0-31.0); MEAN CORPUSCULAR HGB CONC 33.3 (31.8-35.4); MEAN CORPUSCULAR VOLUME 93.3 fl (80.0-94.0); MONOCYTES # (AUTO) 0.1 K/uL (0.4-2.0); NEUTROPHILS # (AUTO) 9.5 K/ul (2.0-6.9); NEUTROPHILS % (AUTO) 93.9 % (42.2-75.2); PLATELET COUNT 260 10^3/uL (140-440); RDW COEFFICIENT OF VARIATION 14.3 % (11.6-14.8); RED BLOOD COUNT 5.05 10^6/ul (4.70-6.10); WHITE BLOOD COUNT 10.13 K/ul (4.2-10.2)
[2024-04-05 05:22] VITALS: TEMP 97.9
[2024-04-05 05:34] LABS: ALANINE AMINOTRANSFERASE 15.8 U/L (0-50); ALBUMIN 4.09 g/dL (3.5-5.0); ALKALINE PHOSPHATASE 71.6 U/L (56-119); BILIRUBIN,TOTAL 0.61 mg/dL (0.2-1.3); BLOOD UREA NITROGEN 17.7 mg/dL (9-20); CALCIUM 8.64 mg/dL (8.4-10.2); CARBON DIOXIDE 20.9 mmol/L (22-30.0); CHLORIDE 106.6 mmol/L (98-107); CREATININE 1.17 mg/dL (0.60-1.10); GLUCOSE 113.5 mg/dL (74-106); MAGNESIUM 1.86 mg/dL (1.6-2.3); POTASSIUM 4.45 mmol/L (3.5-5.1); SODIUM 135.8 mmol/L (134.5-145); TOTAL PROTEIN 6.72 g/dL (6.3-8.2)
[2024-04-05] MEDS: ALBUTEROL 0.083% NEB NEB SCH (05:34)
[2024-04-05 05:44] LABS: TROPONIN I < 0.012 ng/ml (0.0000-0.120)
[2024-04-05] MEDS: PROTONIX PO SCH (08:23)
--- NOTE | 2024-04-05 08:26 | US ---
EXAM: RENAL ULTRASOUND HISTORY: Acute kidney injury. TECHNIQUE: Sonography of the kidneys and urinary bladder was performed. Images were obtained and st ored in a permanent archive. COMPARISON: None. FINDINGS: Right Kidney: - Renal measurement: 11.8 cm. - Parenchyma: Isoechoic with the adjacent liver. Normal parenchymal thickness. - Collecting system: No hydronephrosis. - Calculus: None. - Lesion: None. Left Kidney: - Renal measurement: 11.2 cm. - Parenchyma: Normal echogenicity. Normal parenchymal thickness. - Collecting system: No hydronephrosis. - Calculus: None. - Lesion: None. Bladder: Normal distension. No wall thickening. No calculus. IMPRESSION: 1. No hydronephrosis. 2. Right kidney isoechoic with the adjacent liver, a finding that can be seen in normal patients or in association with medical renal disease.
[2024-04-05] MEDS ORDERED: PROTONIX IVP SCH (09:00)
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
[2024-04-05 10:43] VITALS: BP 120/90; PULSE 74; RESP 16
--- NOTE | 2024-04-05 12:16 | ECHO2D ---
Date of Exam: 04/05/2024 Ordering Physician: HOSPITALIST--VIVIAN CALLOWAY/ DARVIN Room #: 115 Reason for Echo: HTN, CAD, COPD, MAURY, HYPOTENSION M-Mode Normal Adult Results LV Dimensions Normal Adult Results AoV Opening excursions >1.6 >1.6 LVEDD-base- 3.5-5.8 4.2 Ao root dimensions 2.0-3.7 3.7 LVESD-base- 3.1-4.6 L. Atrium dimensions 1.9-3.8 4.7 Post. Wall thickness 0.8-1.1 1.1 IV septum (thickness) 0.7-1.2 1.2 Post. Wall excursion 0.72-1.3 NORMAL Septal motion NORMAL Systolic motion R. Ventricular cavity 1.5-2.0 NORMAL LVEF 60% 67% Paradoxical septal wall motion NORMAL 2-D : 2-D M Mode Echocardiogram was performed using apical four chamber and left parasternal long and short axis views. Mitral, tricuspid and aortic valves appear to be normal. Contractility of the left ventricle seems to be normal, so is the cavity size. Enlarged left atrial cavity size. Calcific aortic valve leaflets. There is no pericardial effusion. There is no thrombus noted in the left ventricle or left atrial cavity. Subcostal approach used. M-MODE: MV: NORMAL AV: CALCIFIC LEAFLETS--NO STENOSIS TV: NORMAL PV: NORMAL CHAMBER SIZE: ENLARGED LEFT ATRIAL CAVITY WALL MOTION: NORMAL PERICARDIUM: NORMAL INTERPRETATION: 1. BORDERLINE LEFT VENTRICLE HYPERTROPHY WITH ENLARGED LEFT ATRIAL CAVITY 2. CALCIFIC AORTIC VALVE LEAFLETS--NO STENOSIS 3. NORMAL TRICUSPID VALVE, PULMONARY VALVE AND MITRAL VALVE 4. NORMAL LEFT VENTRICLE SIZE AND LEFT VENTRICLE CONTRACTILITY [facility]
[2024-04-05] MEDS ORDERED: ROCEPHIN 1 GM/50 ML D5W 1 GM/50 ML BAG IV SCH (21:00)
== END 2024-04-05 13:10 | disposition home or self-care (01) ==
LOC: MEDSURG B 19:49 → ED 19:49 → MEDSURG B 04-05 00:50
PROVIDERS: ADMIT Physician Assistant; ATTEND Hospitalist
DX: E86.0 Dehydration; F17.210 Nicotine dependence, cigarettes, uncomplicated; F13.10 Sedative, hypnotic or anxiolytic abuse, uncomplicated; Z79.899 Other long term (current) drug therapy; I71.21 Aneurysm of the ascending aorta, without rupture; I95.9 Hypotension, unspecified; N17.9 Acute kidney failure, unspecified; I10 Essential (primary) hypertension; K21.9 Gastro-esophageal reflux disease without esophagitis; Z20.822 Contact with and (suspected) exposure to COVID-19; F12.90 Cannabis use, unspecified, uncomplicated; Z51.81 Encounter for therapeutic drug level monitoring; F15.10 Other stimulant abuse, uncomplicated; R06.02 Shortness of breath; J44.9 Chronic obstructive pulmonary disease, unspecified; Z85.21 Personal history of malignant neoplasm of larynx